=== PATIENT | male | born 1965 | race Caucasian/White ===

== ENCOUNTER → 2017-01-22 | Outpatient (CLI) | payer BC ==
--- NOTE | 2017-01-22 15:01 | RAD ---
HISTORY: Nontraumatic right shoulder pain Study: Right shoulder three view Comparison: None Findings: The clavicle is intact. There is marked AC joint degenerative joint disease with inferior clavicular and acromial spurring which could predispose the patient to impingement. The glenohumeral articula tion is normal in its appearance. No acute cortical disruption or dislocation can be identified. T he visualized portions of the scapula are unremarkable. In addition, the visualized portions of the right hemithorax appear normal. IMPRESSION: Marked AC joint degenerative joint disease with inferior clavicular and acromial spurring which c ould predispose the patient to impingement. Reported By:
== END ==
LOC: RAD 14:43
PROVIDERS: ATTEND Nurse Practitioner Family
DX: M25.511 Pain in right shoulder (principal); M19.011 Primary osteoarthritis, right shoulder
CPT/HCPCS: 73030